=== PATIENT | female | born 1975 | race Caucasian/White ===

== ENCOUNTER 2017-10-30 07:43 | Emergency (ER) | payer MEDICARE, MEDICAID ==
[~2017-10-30] VITALS: Ht 152.4 cm; Wt 94.1 kg
[~2017-10-30 07:43] MED LIST: CLIN300C85 PO; CYCL-1 PO; IBUP-1985 PO
[2017-10-30] MEDS ORDERED: IBUP-1986 PO (08:08)
[2017-10-30] MEDS ORDERED: CEPH-571 PO (08:08)
[2017-10-30 08:24] VITALS: BP 121/94
== END 2017-10-30 08:31 | disposition home or self-care (01) ==
LOC: ER 07:44
DX: L03.211 Cellulitis of face (principal); G89.29 Other chronic pain; Z90.710 Acquired absence of both cervix and uterus; Z88.0 Allergy status to penicillin; Z88.2 Allergy status to sulfonamides; Z79.899 Other long term (current) drug therapy; Z56.0 Unemployment, unspecified; Z59.0 Homelessness; Z60.2 Problems related to living alone
CPT/HCPCS: 99284

== ENCOUNTER 2018-02-27 16:44 | Emergency (ER) | payer MEDICARE, MEDICAID ==
[~2018-02-27] VITALS: Ht 152.4 cm; Wt 79.3 kg
[~2018-02-27 16:44] MED LIST changes: +CEPH-571 PO; +IBUP-1986 PO
[2018-02-27] MEDS ORDERED: normal saline 1000ML IV soln IV ONE (17:20)
[2018-02-27] MEDS ORDERED: CefTRIAXone 2gm/D5W 50ml 50 ML IV ONE (17:20)
[2018-02-27] MEDS ORDERED: NO HOME MEDS (17:37)
[2018-02-27] MEDS ORDERED: morphine 4 MG/ML inj SYRINge IV ONE (17:40)
[2018-02-27] MEDS ORDERED: ondansetron/PF 4mg/2ml inj IV ONE (17:40)
[2018-02-27 17:45] LABS: BASOPHILS % (AUTO) 0.2 % (0-1); EOSINOPHILS % (AUTO) 0.5 % (0-6); HEMATOCRIT 36.5 % (35.0-45.0); HEMOGLOBIN 12.1 g/dl (12.0-16.0); LYMPHOCYTES # (AUTO) 1.4 X10'3 (1.1-4.8); MEAN CORPUSCULAR HEMOGLOBIN 28.2 PG (27.0-31.0); MEAN CORPUSCULAR HGB CONC 33.1 % (33.0-36.5); MEAN CORPUSCULAR VOLUME 85.1 FL (78-98); MONOCYTES # (AUTO) 0.6 X10'3 (0-0.9); MONOCYTES % (AUTO) 6.6 % (2-12); NEUTROPHILS # (AUTO) 6.8 X10'3 (1.8-7.7); NEUTROPHILS % (AUTO) 76.7 % (42-75); PLATELET COUNT 304 X10'3 (140-440); RED BLOOD COUNT 4.28 X10'6 (4.20-5.60); RED CELL DISTRIBUTION WIDTH 15.2 % (11.5-14.5); WHITE BLOOD COUNT 8.9 X10'3 (4.5-11.0)
[2018-02-27 18:01] LABS: ALANINE AMINOTRANSFERASE 92 U/L (12-78); ALBUMIN 3.1 G/DL (3.4-5.0); ALBUMIN/GLOBULIN RATIO 0.9 (1.1-1.5); ALKALINE PHOSPHATASE 114 IU/L (46-116); ANION GAP 9 (8-16); ASPARTATE AMINO TRANSFERASE 36 U/L (10-37); BILIRUBIN,TOTAL 0.5 MG/DL (0.1-1.0); BLOOD UREA NITROGEN 16 MG/DL (7-18); BUN/CREATININE RATIO 22.9 (6.6-38.0); CALCIUM 8.2 MG/DL (8.5-10.1); CHLORIDE 102 MMOL/L (99-107); GLUCOSE 97 MG/DL (70-104); POTASSIUM 3.5 MMOL/L (3.5-5.1); SODIUM 138 MMOL/L (135-145); TOTAL CARBON DIOXIDE 27.4 MMOL/L (24-32); TOTAL PROTEIN 6.5 G/DL (6.4-8.2); eGFR > 90 ML/MIN
[2018-02-27] MEDS ORDERED: DOXY100C43 PO (18:14)
[2018-02-27 18:45] VITALS: BP 121/75
== END 2018-02-27 18:47 | disposition home or self-care (01) ==
LOC: ER 16:44
DX: L03.114 Cellulitis of left upper limb (principal); G89.29 Other chronic pain; Z90.710 Acquired absence of both cervix and uterus; Z88.0 Allergy status to penicillin; Z88.2 Allergy status to sulfonamides; Z88.1 Allergy status to other antibiotic agents; Z60.2 Problems related to living alone; Z59.0 Homelessness; Z56.0 Unemployment, unspecified
CPT/HCPCS: 36415; 73080; 80053; 83605; 84145; 85025; 87040; 93005; 96365; 96375; 99285; J0696; J2270; J2405

== ENCOUNTER 2018-06-16 13:23 | Emergency (ER) | payer MEDICARE, MEDICAID ==
[~2018-06-16] VITALS: Ht 152.4 cm; Wt 151.0 kg
[2018-06-16 13:36] VITALS: BP 120/65
[2018-06-16] MEDS ORDERED: vancomycin/NS 1 GM ADD-VANTAGE 250 ML IV ONE (16:00)
[2018-06-16] MEDS ORDERED: morphine 4 MG/ML inj SYRINge IV ONE (16:10)
[2018-06-16] MEDS ORDERED: ACET-3068 PO (16:10)
[2018-06-16] MEDS ORDERED: SULF1TAB49 PO (16:10)
[2018-06-16] MEDS ORDERED: CEPH500C5 PO (16:10)
== END 2018-06-16 18:24 | disposition home or self-care (01) ==
LOC: ER 13:24
DX: L03.115 Cellulitis of right lower limb (principal); G89.29 Other chronic pain; G62.9 Polyneuropathy, unspecified; Z59.0 Homelessness; Z56.0 Unemployment, unspecified; Z98.890 Other specified postprocedural states; Z90.710 Acquired absence of both cervix and uterus; Z88.0 Allergy status to penicillin; Z88.2 Allergy status to sulfonamides; Z88.1 Allergy status to other antibiotic agents
CPT/HCPCS: 73564; 87070; 87077; 87186; 96365; 96375; 99284; J2270; J3370

== ENCOUNTER 2019-10-08 22:55 | Emergency (ER) | payer BC, MEDICAID ==
[~2019-10-08] VITALS: Ht 152.4 cm; Wt 81.4 kg
[2019-10-08] MEDS ORDERED: TETanus/Pertussis (Acell)/Diphther VAC/PF (Tdap-Adult) 0.5ml syringe IMVAC ONE (23:30)
[2019-10-08] MEDS ORDERED: LIDOcaine 1% w/epiNEPHrine 1:200,000 30ml vial SQ ONE (23:30)
[2019-10-09] MEDS ORDERED: LORazepam 1 MG tablet PO ONE (00:30)
[2019-10-09] MEDS ORDERED: famotidine 20mg tablet PO ONE (02:35)
[2019-10-09 03:00] VITALS: BP 117/73
[2019-10-09] MEDS ORDERED: HYDR-4383 PO (09:41)
== END 2019-10-09 02:55 | disposition home or self-care (01) ==
LOC: ER 22:56
DX: S51.012A Laceration without foreign body of left elbow, initial encounter (principal); S63.502A Unspecified sprain of left wrist, initial encounter; G62.9 Polyneuropathy, unspecified; G89.29 Other chronic pain; F41.9 Anxiety disorder, unspecified; F17.200 Nicotine dependence, unspecified, uncomplicated; F32.9 Major depressive disorder, single episode, unspecified; Z90.710 Acquired absence of both cervix and uterus; Z98.890 Other specified postprocedural states; Z72.89 Other problems related to lifestyle; Z59.0 Homelessness; Z56.0 Unemployment, unspecified; Z88.0 Allergy status to penicillin; Z88.2 Allergy status to sulfonamides; Z79.2 Long term (current) use of antibiotics; W19.XXXA Unspecified fall, initial encounter; Y93.I9 Activity, other involving external motion; Y92.89 Other specified places as the place of occurrence of the external cause; Y99.8 Other external cause status
CPT/HCPCS: 12004; 29125; 73080; 73090; 73110; 90471; 90715; 99284

== ENCOUNTER 2019-10-09 08:55 | Emergency (ER) | payer BC, MEDICAID ==
[~2019-10-09] VITALS: Ht 152.4 cm; Wt 87.9 kg
[2019-10-09 09:11] VITALS: BP 117/51
[2019-10-09] MEDS ORDERED: HYDROcodone/acetaminophen 5mg/325mg tablet PO ONE (09:35)
[2019-10-09] MEDS ORDERED: HYDR-4383 PO (09:41)
== END 2019-10-09 10:28 | disposition home or self-care (01) ==
LOC: ER 08:55
DX: M25.522 Pain in left elbow (principal); G62.9 Polyneuropathy, unspecified; G89.29 Other chronic pain; F41.9 Anxiety disorder, unspecified; F32.9 Major depressive disorder, single episode, unspecified; Z90.710 Acquired absence of both cervix and uterus; Z98.890 Other specified postprocedural states; Z60.2 Problems related to living alone; Z59.0 Homelessness; Z56.0 Unemployment, unspecified; Z88.0 Allergy status to penicillin; Z88.2 Allergy status to sulfonamides; Z88.1 Allergy status to other antibiotic agents; Z79.899 Other long term (current) drug therapy
CPT/HCPCS: 99284

== ENCOUNTER 2020-01-25 20:07 | Emergency (ER) | payer BC, MEDICAID ==
[~2020-01-25] VITALS: Ht 154.9 cm; Wt 73.2 kg
[~2020-01-25 20:07] MED LIST changes: -CEPH-571 PO; -CLIN300C85 PO; -CYCL-1 PO; +HYDR-4383 PO; -IBUP-1985 PO; -IBUP-1986 PO
[2020-01-25 20:42] LABS: BASOPHILS # (AUTO) 0.1 X10'3 (0-0.2); BASOPHILS % (AUTO) 0.8 % (0-1); EOSINOPHILS # (AUTO) 0.4 X10'3 (0-0.9); EOSINOPHILS % (AUTO) 4.4 % (0-6); HEMATOCRIT 30.2 % (35.0-45.0); HEMOGLOBIN 9.8 g/dl (12.0-16.0); LYMPHOCYTES # (AUTO) 2.7 X10'3 (1.1-4.8); LYMPHOCYTES % (AUTO) 32.9 % (21-51); MEAN CORPUSCULAR HEMOGLOBIN 25.1 PG (27.0-31.0); MEAN CORPUSCULAR HGB CONC 32.3 g/dL (33.0-36.5); MEAN CORPUSCULAR VOLUME 77.7 FL (78-98); MEAN PLATELET VOLUME 7.4 FL (7.4-10.4); MONOCYTES # (AUTO) 0.6 X10'3 (0-0.9); MONOCYTES % (AUTO) 7.4 % (2-12); NEUTROPHILS # (AUTO) 4.4 X10'3 (1.8-7.7); NEUTROPHILS % (AUTO) 54.5 % (42-75); PLATELET COUNT 351 X10'3 (140-440); RED BLOOD COUNT 3.88 X10'6 (4.20-5.60); RED CELL DISTRIBUTION WIDTH 19.4 % (11.5-14.5); WHITE BLOOD COUNT 8.1 X10'3 (4.5-11.0)
[2020-01-25 20:42] LABS: CLARITY,URINE CLEAR (Clear); COLOR,URINE YELLOW (Yellow); GLUCOSE, URINE NEGATIVE (Neg); KETONES,URINE NEGATIVE (Neg); LEUKOCYTE ESTERASE ,URINE TRACE (Neg); NITRITES, URINE NEGATIVE (Neg); OCCULT BLOOD,URINE NEGATIVE (Neg); PROTEIN,URINE NEGATIVE (Neg)
[2020-01-25 20:44] LABS: UA COLLECTION TYPE CLN CATCH MIDSTREAM; URINE HCG NEGATIVE (NEG)
[2020-01-25 20:52] LABS: BACTERIA,URINE 2+ /HPF (Neg); RBC,URINE NONE SEEN /HPF (0-2); SQUAMOUS EPITHELIAL CELL,UR MODERATE /LPF (FEW)
[2020-01-25 20:57] LABS: ALANINE AMINOTRANSFERASE 33 U/L (12-78); ALBUMIN 3.1 G/DL (3.4-5.0); ALBUMIN/GLOBULIN RATIO 0.9 (1.1-1.5); ALKALINE PHOSPHATASE 85 IU/L (46-116); ANION GAP 7 (8-16); ASPARTATE AMINO TRANSFERASE 20 U/L (10-37); BILIRUBIN,TOTAL 0.2 MG/DL (0.1-1.0); BLOOD UREA NITROGEN 22 MG/DL (7-18); BUN/CREATININE RATIO 25.3 (6.6-38.0); CALCIUM 8.4 MG/DL (8.5-10.1); CHLORIDE 106 MMOL/L (99-107); CREATININE 0.87 MG/DL (0.40-0.90); GLUCOSE 86 MG/DL (70-104); POTASSIUM 4.1 MMOL/L (3.5-5.1); SODIUM 139 MMOL/L (135-145); TOTAL CARBON DIOXIDE 26.1 MMOL/L (24-32); TOTAL PROTEIN 6.5 G/DL (6.4-8.2); eGFR 70 ML/MIN
[2020-01-25 20:58] LABS: AMYLASE 17 U/L (25-115); LIPASE 52 U/L (73-393)
[2020-01-25] MEDS ORDERED: ketorolac trometh. 30mg/ml inj. IV ONE (21:50)
[2020-01-25] MEDS ORDERED: normal saline 1000ML IV soln IVB ONE (21:50)
[2020-01-25] MEDS ORDERED: ondansetron/PF 4mg/2ml inj IV ONE (21:50)
[2020-01-25] MEDS ORDERED: CEPH-572 PO (22:49)
[2020-01-25 23:14] VITALS: BP 140/90
== END 2020-01-25 23:15 | disposition home or self-care (01) ==
LOC: ER 20:07
DX: N39.0 Urinary tract infection, site not specified (principal); R10.84 Generalized abdominal pain; K62.5 Hemorrhage of anus and rectum; D64.9 Anemia, unspecified; K59.00 Constipation, unspecified; G89.29 Other chronic pain; F41.9 Anxiety disorder, unspecified; F32.9 Major depressive disorder, single episode, unspecified; F19.90 Other psychoactive substance use, unspecified, uncomplicated; Z86.19 Personal history of other infectious and parasitic diseases; Z85.41 Personal history of malignant neoplasm of cervix uteri; Z98.890 Other specified postprocedural states; Z90.710 Acquired absence of both cervix and uterus; Z72.89 Other problems related to lifestyle; Z60.2 Problems related to living alone; Z56.0 Unemployment, unspecified; Z59.0 Homelessness; Z88.0 Allergy status to penicillin; Z88.2 Allergy status to sulfonamides; Z88.1 Allergy status to other antibiotic agents; Z79.2 Long term (current) use of antibiotics; Z79.899 Other long term (current) drug therapy
CPT/HCPCS: 36415; 74176; 80053; 81001; 81025; 82150; 83690; 85025; 87088; 96361; 96374; 96375; 99284; J1885; J2405; J7030

== ENCOUNTER 2020-06-05 08:23 | Emergency (ER) | payer BC, MEDICAID ==
[~2020-06-05] VITALS: Ht 157.5 cm; Wt 95.0 kg
[2020-06-05 08:27] VITALS: BP 125/78
[2020-06-05] MEDS ORDERED: LIDOcaine 1% W/epiNEPHrine 1:200,000 10ml vial IJ ONE (09:25)
[2020-06-05] MEDS ORDERED: CEPH500C5 PO (10:16)
== END 2020-06-05 10:34 | disposition home or self-care (01) ==
LOC: ER 08:23
DX: L02.414 Cutaneous abscess of left upper limb (principal); G89.29 Other chronic pain; F41.9 Anxiety disorder, unspecified; F32.9 Major depressive disorder, single episode, unspecified; F19.90 Other psychoactive substance use, unspecified, uncomplicated; Z85.9 Personal history of malignant neoplasm, unspecified; Z98.890 Other specified postprocedural states; Z90.710 Acquired absence of both cervix and uterus; Z72.89 Other problems related to lifestyle; Z60.2 Problems related to living alone; Z56.0 Unemployment, unspecified; Z59.0 Homelessness; Z88.2 Allergy status to sulfonamides; Z88.0 Allergy status to penicillin; Z88.1 Allergy status to other antibiotic agents; Z79.2 Long term (current) use of antibiotics; Z79.899 Other long term (current) drug therapy
CPT/HCPCS: 10060; 99283

== ENCOUNTER 2020-06-06 18:39 | Emergency (ER) | payer BC, MEDICAID ==
[~2020-06-06] VITALS: Ht 157.5 cm; Wt 105.0 kg
[~2020-06-06 18:39] MED LIST changes: +CEPH500C5 PO
[2020-06-06 18:44] VITALS: BP 148/82
== END 2020-06-06 19:30 | disposition home or self-care (01) ==
LOC: ER 18:40
DX: L02.414 Cutaneous abscess of left upper limb (principal); G89.29 Other chronic pain; F41.9 Anxiety disorder, unspecified; F32.9 Major depressive disorder, single episode, unspecified; F19.90 Other psychoactive substance use, unspecified, uncomplicated; Z85.9 Personal history of malignant neoplasm, unspecified; Z90.710 Acquired absence of both cervix and uterus; Z98.890 Other specified postprocedural states; Z72.89 Other problems related to lifestyle; Z60.2 Problems related to living alone; Z56.0 Unemployment, unspecified; Z59.0 Homelessness; Z88.0 Allergy status to penicillin; Z88.2 Allergy status to sulfonamides; Z88.1 Allergy status to other antibiotic agents; Z79.2 Long term (current) use of antibiotics; Z79.899 Other long term (current) drug therapy
CPT/HCPCS: 99281

== ENCOUNTER 2020-07-30 17:24 | Emergency (ER) | payer BC, MEDICAID ==
[~2020-07-30] VITALS: Ht 157.5 cm; Wt 99.3 kg
[~2020-07-30 17:24] MED LIST changes: +CEPH-585 PO; -CEPH500C5 PO
[2020-07-30 17:29] VITALS: BP 137/55
[2020-07-30] MEDS ORDERED: acetaminophen 325mg tablet PO ONE (18:05)
[2020-07-30] MEDS ORDERED: diazepam 5mg tablet PO ONE (18:05)
[2020-07-30] MEDS ORDERED: oxyCODONE/APAP 5-325mg tablet PO ONE (18:55)
== END 2020-07-30 20:30 | disposition home or self-care (01) ==
LOC: ER 17:25
DX: S16.1XXA Strain of muscle, fascia and tendon at neck level, initial encounter (principal); R51.9 Headache, unspecified; M25.512 Pain in left shoulder; M54.9 Dorsalgia, unspecified; G89.29 Other chronic pain; F41.9 Anxiety disorder, unspecified; F32.9 Major depressive disorder, single episode, unspecified; F19.90 Other psychoactive substance use, unspecified, uncomplicated; Z85.9 Personal history of malignant neoplasm, unspecified; Z90.710 Acquired absence of both cervix and uterus; Z98.890 Other specified postprocedural states; Z72.89 Other problems related to lifestyle; Z60.2 Problems related to living alone; Z56.0 Unemployment, unspecified; Z59.0 Homelessness; Z88.0 Allergy status to penicillin; Z88.2 Allergy status to sulfonamides; Z88.1 Allergy status to other antibiotic agents; Z79.2 Long term (current) use of antibiotics; Z79.899 Other long term (current) drug therapy; W19.XXXA Unspecified fall, initial encounter; Y93.89 Activity, other specified; Y92.89 Other specified places as the place of occurrence of the external cause; Y99.8 Other external cause status
CPT/HCPCS: 70450; 71045; 72131; 73030; 73503; 99285

== ENCOUNTER 2021-06-29 10:36 | Emergency (ER) | payer BC, MEDICAID ==
[~2021-06-29] VITALS: Ht 157.5 cm; Wt 95.5 kg
[~2021-06-29 10:36] MED LIST changes: -CEPH-585 PO
[2021-06-29 10:46] VITALS: BP 131/79
== END 2021-06-29 12:10 | disposition home or self-care (01) ==
LOC: ER 10:36
DX: D09.9 Carcinoma in situ, unspecified (principal); G89.29 Other chronic pain; F41.9 Anxiety disorder, unspecified; F32.A Depression, unspecified; F19.90 Other psychoactive substance use, unspecified, uncomplicated; Z90.710 Acquired absence of both cervix and uterus; Z98.890 Other specified postprocedural states; Z72.89 Other problems related to lifestyle; Z60.2 Problems related to living alone; Z56.0 Unemployment, unspecified; Z59.00 Homelessness unspecified; Z88.0 Allergy status to penicillin; Z85.9 Personal history of malignant neoplasm, unspecified; Z88.2 Allergy status to sulfonamides; Z88.1 Allergy status to other antibiotic agents; Z79.899 Other long term (current) drug therapy
CPT/HCPCS: 99281

== ENCOUNTER 2022-08-05 11:04 | Emergency (ER) | payer BC, MEDICAID ==
[~2022-08-05] VITALS: Ht 157.5 cm; Wt 109.1 kg
--- NOTE | 2022-08-05 11:29 | NUR ---
AT BEDSIDE FOR EVAL -
[2022-08-05] MEDS ORDERED: normal saline 1000ML IV soln IVB ONE ×2 (11:35→12:45)
--- NOTE | 2022-08-05 11:56 | NUR ---
ULTRASOUND AT BEDSIDE
[2022-08-05 12:01] LABS: BASOPHILS # (AUTO) 0.1 X10'3 (0-0.2); BASOPHILS % (AUTO) 0.5 % (0-1); EOSINOPHILS # (AUTO) 0.1 X10'3 (0-0.9); EOSINOPHILS % (AUTO) 1.1 % (0-6); HEMATOCRIT 29.8 % (35.0-45.0); HEMOGLOBIN 9.7 g/dl (12.0-16.0); LYMPHOCYTES # (AUTO) 0.9 X10'3 (1.1-4.8); MEAN CORPUSCULAR HEMOGLOBIN 26.7 PG (27.0-31.0); MEAN CORPUSCULAR HGB CONC 32.7 g/dL (33.0-36.5); MEAN CORPUSCULAR VOLUME 81.8 FL (78-98); MEAN PLATELET VOLUME 7.1 FL (7.4-10.4); MONOCYTES # (AUTO) 0.8 X10'3 (0-0.9); MONOCYTES % (AUTO) 8.4 % (2-12); PLATELET COUNT 272 X10'3 (140-440); RED BLOOD COUNT 3.64 X10'6 (4.20-5.60); RED CELL DISTRIBUTION WIDTH 16.6 % (11.5-14.5); WHITE BLOOD COUNT 9.9 X10'3 (4.5-11.0)
[2022-08-05 12:14] LABS: ALANINE AMINOTRANSFERASE 12 U/L (12-78); ALBUMIN 2.8 G/DL (3.4-5.0); ALBUMIN/GLOBULIN RATIO 0.6 (1.1-1.5); ALKALINE PHOSPHATASE 87 IU/L (46-116); ANION GAP 10 (8-16); ASPARTATE AMINO TRANSFERASE 15 U/L (10-37); BILIRUBIN,TOTAL 0.3 MG/DL (0.1-1.0); BLOOD UREA NITROGEN 23 MG/DL (7-18); BUN/CREATININE RATIO 24.5 (10.0-20.0); CALCIUM 8.8 MG/DL (8.5-10.1); CHLORIDE 102 MMOL/L (99-107); CREATININE 0.94 MG/DL (0.40-0.90); GLUCOSE 97 MG/DL (70-104); POTASSIUM 3.6 MMOL/L (3.5-5.1); SODIUM 136 MMOL/L (135-145); TOTAL CARBON DIOXIDE 23.6 MMOL/L (24-32); TOTAL PROTEIN 7.2 G/DL (6.4-8.2); eGFR 64 ML/MIN
--- NOTE | 2022-08-05 12:43 | NUR ---
IV FLUID BOLUS RUNNING ON PRESSURE BAG. PT AWARE OF THE NEED FOR A URINE SAMPLE. WILL ATTEMPT TO COLLECT WHEN FLUIDS ARE DONE.
[2022-08-05 13:07] LABS: CLARITY,URINE SLIGHTLY CLOUDY (Clear); COLOR,URINE YELLOW (Yellow); GLUCOSE, URINE NEGATIVE (Neg); KETONES,URINE NEGATIVE (Neg); LEUKOCYTE ESTERASE ,URINE SMALL (Neg); NITRITES, URINE POSITIVE (Neg); OCCULT BLOOD,URINE NEGATIVE (Neg); PH,URINE 5.5 (4.8-8.0); PROTEIN,URINE NEGATIVE (Neg); UROBILINOGEN,URINE 0.2 E.U/dL (0.2-1.0)
[2022-08-05] MEDS ORDERED: levoFLOXACIN-Levaquin 750MG/D5 150 ML IV ONE (13:25)
[2022-08-05] MEDS ORDERED: LORazepam 2 mg/ml vial IV ONE (13:25)
[2022-08-05 13:32] LABS: UA COLLECTION TYPE VOIDED
[2022-08-05 13:44] LABS: URINE AMPHETAMINE SCREEN POSITIVE (Neg); URINE BARBITUATE SCREEN NEGATIVE (Neg); URINE BENZODIAZEPINES SCREEN NEGATIVE (Neg); URINE CANNABINOID SCREEN NEGATIVE (Neg); URINE COCAINE SCREEN NEGATIVE (Neg); URINE METHADONE SCREEN NEGATIVE (Neg); URINE OPIATE SCREEN NEGATIVE (Neg); URINE PHENCYCLIDINE SCREEN NEGATIVE (Neg)
[2022-08-05 13:54] LABS: BACTERIA,URINE 3+ /HPF (Neg); RBC,URINE NONE SEEN /HPF (0-2); SQUAMOUS EPITHELIAL CELL,UR NONE SEEN /LPF (FEW); WBC,URINE 30-50 /HPF (0-4)
[2022-08-05] MEDS ORDERED: LEVO-65 PO (14:07)
[2022-08-05 14:50] VITALS: BP 144/80
--- NOTE | 2022-08-11 10:40 | NUR ---
CALL TO PATIENT PER DR ANN ON 08/10/22. CALL IN TO [facility] PER DR ANN, PATIENT AWARE.
== END 2022-08-05 16:10 | disposition home or self-care (01) ==
LOC: ER 11:05
DX: N39.0 Urinary tract infection, site not specified (principal); F31.9 Bipolar disorder, unspecified; Z88.0 Allergy status to penicillin; Z88.2 Allergy status to sulfonamides; Z88.1 Allergy status to other antibiotic agents
CPT/HCPCS: 36415; 71045; 74176; 76770; 80053; 80305; 81001; 83605; 84145; 85025; 87040; 87077; 87088; 87186; 93005; 96361; 96365; 96375; 99285; J1956; J2060; J7030